=== PATIENT | male | born 1950 | race Caucasian/White ===

== ENCOUNTER 2020-07-12 22:36 | Inpatient (IN) | payer MEDICARE, OTHER ==
[~2020-07-12] VITALS: Ht 175.3 cm; Wt 51.3 kg
[~2020-07-12 22:36] MED LIST: ADVAIR 250-501 EACH INH; AMOX TR-K CLV1 EAC4 PO; ANUSOL HC SUPP1 SUPP PR; ASPIRIN EC81 MG PO; BUSPAR 10MG10 MG PO; CLOPIDOGREL75 MG PO; CYMBALTA60 MG PO; FERROUS SULFAT325 M2 PO; FLEXERIL 10 MG10 MG PO; HYDROCHLOROTHIA25 MG PO; LIPITOR TAB 2020 MG PO; LISINOPRIL10 MG PO; METOPROLOL SUCC25 MG PO; MOBIC7.5 MG PO; NEURONTIN400 MG PO; NITROGLYCERIN0.4 MG SL; PANTOPRAZOLE SO40 MG PO; REVATIO 20 MG T20 MG PO; SYNTHROID25 MCG PO; VENTOLIN HFA 66.7 GM INH; VENTOLIN/PROVE0.5 ML INH; ZOFRAN4 MG PO
[2020-07-13] MEDS ORDERED: CLINDAMYCIN HC300 MG PO (00:48)
[2020-07-13] MEDS ORDERED: LOPRESSOR 25 MG25 MG PO (00:49)
[2020-07-13] MEDS ORDERED: GABAPENTIN600 MG PO (00:49)
[2020-07-13] MEDS ORDERED: ALPRAZOLAM0.5 MG PO (00:49)
[2020-07-13] MEDS ORDERED: PLETAL 100 MG100 MG PO (00:49)
[2020-07-13] MEDS ORDERED: PROVENTIL HFA6.7 GM INH (00:51)
[2020-07-13] MEDS ORDERED: SYMBICORT 16010.2 GM INH (00:51)
[2020-07-13 03:20] LABS: HEMOGLOBIN 12.7 gm/dl (14.0-17.5); RED BLOOD COUNT 3.83 M/UL (4.20-5.50); WHITE BLOOD COUNT 9.3 K/UL (4.5-11.0)
[2020-07-13 03:46] LABS: BUN/CREATININE RATIO 20 (0-10)
[2020-07-14 02:31] LABS: HEMOGLOBIN 12.1 gm/dl (14.0-17.5); RED BLOOD COUNT 3.72 M/UL (4.20-5.50); WHITE BLOOD COUNT 10.2 K/UL (4.5-11.0)
[2020-07-14 02:51] LABS: BUN/CREATININE RATIO 24 (0-10)
--- NOTE | 2020-07-14 13:50 | NUR ---
PATIENT LEFT FLOOR FOR PRODEDURE AT 1340. NEW 20G IV IN LEFT HAND.
[2020-07-14 16:57] LABS: HEMOGLOBIN 10.4 gm/dl (14.0-17.5); RED BLOOD COUNT 3.49 M/UL (4.20-5.50)
[2020-07-14 16:58] LABS: WHITE BLOOD COUNT 6.4 K/UL (4.5-11.0)
[2020-07-17 12:13] LABS: AMPHETAMINE Positive (.); AMPHETAMINE GC/MS CONF 1810 ng/mL (Cutoff=500); AMPHETAMINES Positive (Cutoff=1000); AMPHETAMINES, URINE See Final Results ng/mL (Cutoff=1000); BARBITURATE Negative ng/mL (Cutoff=200); BENZODIAZEPINES Negative ng/mL (Cutoff=200); CANNABINOIDS Negative ng/mL (Cutoff=20); COCAINE (METABOLITE) Negative ng/mL (Cutoff=300); CODEINE Negative (Cutoff=300); CREATININE 212.9 mg/dL (20.0-300.0); HYDROCODONE Negative (Cutoff=300); HYDROMORPHONE Negative (Cutoff=300); MEPERIDINE Negative ng/mL (Cutoff=200); METHADONE Negative ng/mL (Cutoff=300); METHAMPHETAMINE Positive (.); METHAMPHETAMINE GC/MS CONF >3000 ng/mL (Cutoff=500); MORPHINE Positive (.); MORPHINE CONFIRM >3000 ng/mL (Cutoff=300); OPIATES Positive ng/mL (Cutoff=300); OPIATES See Final Results ng/mL (Cutoff=300); PHENCYCLIDINE Negative ng/mL (Cutoff=25); PROPOXYPHENE Negative ng/mL (Cutoff=300)
== END 2020-07-14 23:52 | disposition short-term general hospital (02) | DRG 299 ==
LOC: MED SURG 4 07-13 00:35
PROVIDERS: Internal Medicine; Surgery; ADMIT Internal Medicine
PROC: B40FYZZ Plain Radiography of Right Lower Extremity Arteries using Other Contrast (ICD-10-PCS; 2020-07-14)
PROC: B40GYZZ Plain Radiography of Left Lower Extremity Arteries using Other Contrast (ICD-10-PCS; principal; 2020-07-14 11:00)
DX: I70.261 Atherosclerosis of native arteries of extremities with gangrene, right leg (principal); E43 Unspecified severe protein-calorie malnutrition; Z68.1 Body mass index [BMI] 19.9 or less, adult; I74.5 Embolism and thrombosis of iliac artery; I71.4 Abdominal aortic aneurysm, without rupture; J44.9 Chronic obstructive pulmonary disease, unspecified; I25.10 Atherosclerotic heart disease of native coronary artery without angina pectoris; F41.1 Generalized anxiety disorder; I10 Essential (primary) hypertension; D64.9 Anemia, unspecified; E03.9 Hypothyroidism, unspecified; F17.200 Nicotine dependence, unspecified, uncomplicated; Z20.822 Contact with and (suspected) exposure to COVID-19; G89.29 Other chronic pain; M54.9 Dorsalgia, unspecified; Z89.412 Acquired absence of left great toe; Z82.49 Family history of ischemic heart disease and other diseases of the circulatory system; Z83.3 Family history of diabetes mellitus; Z59.0 Homelessness
CPT/HCPCS: ECHO; 36415; 71046; 75625; 75635; 80048; 80053; 80307; 82550; 82553; 82962; 83735; 84100; 84439; 84443; 84484; 85025; 85027; 85652; 86140; 86850; 86900; 86901; 93005; 93306; 93880; 94760; C1769; C1887; J1644; J2001; J2370; J2543; J2704; J2710; J3370; J7030; J7040; J7050; J7120; Q9962; Q9963; Q9967; U0002